=== PATIENT | male | born 1990 | race Two or more races ===

== ENCOUNTER 2023-01-09 18:39 | Emergency (ER) | payer SELFPAY ==
[2023-01-09] MEDS ORDERED: Ketorolac 60 MG/2 ML SDV IM ONE (21:04)
[2023-01-09] MEDS ORDERED: Acetaminophen/HYDROcodone 325-5 MG Tab PO ONE (23:01)
== END 2023-01-09 23:26 ==
LOC: JD.ED 18:39
DX: S09.90XA Unspecified injury of head, initial encounter (principal); S02.652A Fracture of angle of left mandible, initial encounter for closed fracture; S05.11XA Contusion of eyeball and orbital tissues, right eye, initial encounter; F17.210 Nicotine dependence, cigarettes, uncomplicated; Y04.8XXA Assault by other bodily force, initial encounter
CPT/HCPCS: 70450; 70486; 96372; 99284; A9270; J1885; 99283